=== PATIENT | female | born 1990 | race African-American/Black ===

== ENCOUNTER 2016-08-17 23:48 | Emergency (ER) | payer SELFPAY ==
--- NOTE | ~2016-08-17 | CR20 ---
STS. [facility] A Service of [facility] & [facility] RADIOLOGY TEXT RESULTS PATIENT: MATHIEU WHITTEN LOCATION: SED : 86 UNIT #: [id number] AGE: [address]: Christopher Ruiz SEX: F ORDER DR: [id number] [place] [id number] E MR#: [id number] Acc #: [id number] NAME: MATHIEU WHITTEN : 1990 SEX: F STUDY DATE/TIME: 08/18/2016 01:25 UNIT: SED ROOM: STUDY DESCRIPTION: CR Ankle Min 3 Views Lt Attending Physician: Christopher Ruiz P.A.-C. Ordering Physician: Christopher Ruiz P.A.-C. MEDICAL IMAGING REPORT This report is preliminary unless electronic signature is present. EXAM Left ankle, 08/18 at 01:25 INDICATION Pain and swelling in the lateral ankle for 2 days. No trauma. FINDINGS AP, lateral, and oblique projections of the ankle show satisfactory integrity of the joint mortise with a smooth articular surface. There is no identifiable fracture, dislocation, or radiopaque foreign body. IMPRESSION Normal left ankle. Dictated by... Kirill Hudson Jr., M.D. THIS IS AN ELECTRONICALLY VERIFIED REPORT Kirill Hudson Jr., M.D. at 08/18/2016 9:54 PM JAMA/gus TD: 08/18/2016 08:16 JOB #: [id number] MEDICAL IMAGING REPORT Page 1 of 1
[2016-08-18] MEDS ORDERED: NO MEDICATIONS (00:11)
== END 2016-08-18 02:01 | disposition home or self-care (01) ==
LOC: SED 23:48
DX: S93.402A Sprain of unspecified ligament of left ankle, initial encounter (principal); X58.XXXA Exposure to other specified factors, initial encounter; Y92.9 Unspecified place or not applicable
CPT/HCPCS: 29540; 73610; 99283